=== PATIENT | male | born 2000 | race African-American/Black ===

== ENCOUNTER 2020-01-24 14:26 | Emergency (ER) | payer OTHER ==
[~2020-01-24] VITALS: Ht 177.8 cm; Wt 97.1 kg
[2020-01-24 14:27] VITALS: BP 132/73
[2020-01-24] MEDS ORDERED: AZITHROMYCIN 250MG TABLET PO ONE (15:15)
[2020-01-24] MEDS ORDERED: cefTRIAXone SOD 250MG VIAL (J0696 PER 250MG) IM ONE (15:15)
[2020-01-24] MEDS ORDERED: LIDOCAINE 1% SDV 5ML VIAL DILUENT ONE (15:15)
[2020-01-24 17:18] LABS: CHLAMYDIA DNA AMPLIFICATION POSITIVE (NEGATIVE); GC DNA AMPLIFICATION POSITIVE (NEGATIVE)
== END 2020-01-24 16:04 | disposition home or self-care (01) ==
LOC: M ED 14:26
DX: N34.2 Other urethritis (principal); F17.210 Nicotine dependence, cigarettes, uncomplicated
CPT/HCPCS: 87661; 96372; 99282; J0696

== ENCOUNTER 2020-03-12 13:45 | Emergency (ER) | payer OTHER ==
[~2020-03-12] VITALS: Ht 177.8 cm; Wt 93.3 kg
[2020-03-12] MEDS ORDERED: AZITHROMYCIN 250MG TABLET PO ONE (15:00)
[2020-03-12] MEDS ORDERED: LIDOCAINE 1% SDV 5ML VIAL DILUENT ONE (15:00)
[2020-03-12] MEDS ORDERED: cefTRIAXone SOD 250MG VIAL (J0696 PER 250MG) IM ONE (15:00)
[2020-03-12 15:36] VITALS: BP 140/71
[2020-03-12 16:08] LABS: HEPATITIS B SURFACE ANTIBODY POSITIVE (POSITIVE); HEPATITIS B SURFACE ANTIGEN NEGATIVE (NEGATIVE); HEPATITIS C VIRUS ABY INDEX 0.1 INDEX (<0.8); HIV 1&2 SCREEN CENTAUR NEGATIVE (NEGATIVE)
[2020-03-12 20:09] LABS: CHLAMYDIA DNA AMPLIFICATION NEGATIVE (NEGATIVE); GC DNA AMPLIFICATION NEGATIVE (NEGATIVE)
== END 2020-03-12 15:37 | disposition home or self-care (01) ==
LOC: M ED 13:45
DX: Z20.2 Contact with and (suspected) exposure to infections with a predominantly sexual mode of transmission (principal)
CPT/HCPCS: 36415; 81001; 86706; 86780; 86803; 87340; 87389; 87661; 96372; 99284; J0696

== ENCOUNTER 2020-08-30 15:23 | Emergency (ER) | payer OTHER ==
[~2020-08-30] VITALS: Ht 177.8 cm; Wt 100.8 kg
[2020-08-30] MEDS ORDERED: LIDOCAINE 1% SDV 5ML VIAL DILUENT ONE (19:30)
[2020-08-30] MEDS ORDERED: DOXYCYCLINE HYCLATE 100MG TABLET PO ONE (19:30)
[2020-08-30] MEDS ORDERED: cefTRIAXone 500MG VIAL (J0696 PER 250MG) IM ONE (19:30)
[2020-08-30] MEDS ORDERED: DOXY100C37 PO ×2 (19:31→20:12)
[2020-08-30 20:16] VITALS: BP 131/89
[2020-08-30 21:36] LABS: CHLAMYDIA DNA AMPLIFICATION NEGATIVE (NEGATIVE); GC DNA AMPLIFICATION NEGATIVE (NEGATIVE)
== END 2020-08-30 20:18 | disposition home or self-care (01) ==
LOC: M ED 15:23
DX: Z20.2 Contact with and (suspected) exposure to infections with a predominantly sexual mode of transmission (principal); N50.9 Disorder of male genital organs, unspecified; F17.210 Nicotine dependence, cigarettes, uncomplicated
CPT/HCPCS: 81001; 87086; 87661; 96372; 99283; J0696